=== PATIENT | male | born 1995 | race Caucasian/White ===

== ENCOUNTER 2021-10-10 00:24 | Emergency (ER) | payer BC ==
[2021-10-10] MEDS: Ketorolac 30 MG/ML SDV IVPUSH ONE (02:25)
[2021-10-10] MEDS: Ondansetron 4 MG/2 ML SDV IVPUSH ONE (02:25)
[2021-10-10] MEDS: Sodium Chloride 0.9% 1,000 ML IV ONE (02:25)
[2021-10-10] MEDS ORDERED: Sodium Chloride 0.9% 10 ML Syringe FLUSH ONE (02:40)
[2021-10-10] MEDS: Iopamidol 612 MG/ML 100 ML Bottle IVPUSH ONE (02:40)
[2021-10-10] MEDS: Sodium Chloride 0.9% 10 ML Syringe FLUSH ONE (02:40)
[2021-10-10] MEDS ORDERED: Iopamidol 612 MG/ML 100 ML Bottle IVPUSH ONE (02:40)
== END 2021-10-10 03:51 | disposition home or self-care (01) ==
LOC: JD.ED 00:24
DX: R10.11 Right upper quadrant pain (principal); R93.5 Abnormal findings on diagnostic imaging of other abdominal regions, including retroperitoneum
CPT/HCPCS: 36415; 74177; 80053; 81001; 83605; 83690; 85007; 85027; 96361; 96374; 96375; 99284; J1885; J2405; J3490; J7030; Q9967